=== PATIENT | male | born 2000 | race African-American/Black ===

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

== ENCOUNTER 2020-10-05 17:56 | Emergency (ER) | payer SELFPAY ==
[~2020-10-05] VITALS: Ht 177.8 cm; Wt 72.7 kg
[2020-10-05 18:02] VITALS: BP 122/70; Ht 177.8 cm; Wt 72.7 kg
[2020-10-05 18:19] LABS: BILIRUBIN NEGATIVE (NEGATIVE); KETONE NEGATIVE (NEGATIVE); NITRITE NEGATIVE (NEGATIVE); UROBILINOGEN NORMAL mg/dL (< 2)
== END 2020-10-05 18:42 | disposition home or self-care (01) ==
LOC: D.ER 17:56
PROVIDERS: Emergency Medicine
DX: Z20.2 Contact with and (suspected) exposure to infections with a predominantly sexual mode of transmission (principal)